=== PATIENT | male | born 1935 | race Caucasian/White ===

== ENCOUNTER 2017-07-13 21:00 | Observation (INO) | payer MEDICARE ==
[2017-07-13 22:03] LABS: BASO # 0.1 10^3/uL (0.0-0.2); BASO % 0.5 % (0.0-1.0); EOS # 0.1 10^3/uL (0.0-0.50); EOS % 1.3 % (0.0-3.0); HEMATOCRIT 43.3 % (42.0-52.0); IMMATURE GRANULOCYTE % 0.4 % (0-3.0); LYMPH # 2.2 10^3/uL (1.5-4.5); LYMPH % 21.7 % (24.0-44.0); MEAN CORPUSCULAR HEMOGLOBIN 27.7 pg (27.0-33.0); MEAN CORPUSCULAR HGB CONC 32.3 g/dl (32.0-36.5); MEAN CORPUSCULAR VOLUME 85.6 fl (80.0-96.0); MONO # 1.1 10^3/uL (0.0-0.8); MONO % 10.4 % (0.0-5.0); NEUTROPHILS # 6.7 10^3/uL (1.8-7.7); NEUTROPHILS % 65.7 % (36.0-66.0); PLATELET COUNT, AUTOMATED 158 10^3/uL (150-450); RED BLOOD COUNT 5.06 10^6/uL (4.30-6.10); RED CELL DISTRIBUTION WIDTH 15.7 % (11.5-14.5); WHITE BLOOD COUNT 10.2 10^3/uL (4.0-10.0)
[2017-07-13 22:19] LABS: ALBUMIN 4.4 GM/DL (3.2-5.2); ALBUMIN/GLOBULIN RATIO 1.38 (1.00-1.93); ALKALINE PHOSPHATASE 103 U/L (45-117); ALT/SGPT 22 U/L (12-78); ANION GAP 9 MEQ/L (8-16); AST/SGOT 28 U/L (7-37); BILIRUBIN,DIRECT 0.1 MG/DL (0.0-0.2); BILIRUBIN,TOTAL 0.5 MG/DL (0.2-1.0); BLOOD UREA NITROGEN 25 MG/DL (7-18); CALCIUM LEVEL 8.9 MG/DL (8.8-10.2); CARBON DIOXIDE LEVEL 23 MEQ/L (21-32); CHLORIDE LEVEL 111 MEQ/L (98-107); CPK CREATINE PHOSPHOKINASE 84 U/L (39-308); CREATININE FOR GFR 1.64 MG/DL (0.70-1.30); GLOMERULAR FILTRATION RATE 43.4 (>42); GLUCOSE, FASTING 118 MG/DL (70-100); POTASSIUM SERUM 3.9 MEQ/L (3.5-5.1); SODIUM LEVEL 143 MEQ/L (136-145); TOTAL PROTEIN 7.6 GM/DL (6.4-8.2); TROPONIN I 0.02 NG/ML (< 0.10)
[2017-07-13 22:25] LABS: CK-MB VALUE MASS 1.6 NG/ML (<3.6); ETHYL ALCOHOL (ETHANOL) < 0.003 % (0.000-0.010)
[2017-07-13 22:53] LABS: VENOUS BASE EXCESS -3.1 (-2.0-2.0); VENOUS HCO3 21.2 MEQ/L (23.0-27.0); VENOUS O2 SATURATION 92.8 % (60.0-80.0); VENOUS PARTIAL PRESSURE CO2 35.7 mmHg (38.0-50.0); VENOUS PARTIAL PRESSURE O2 65.2 mmHg (30.0-50.0); VENOUS PH 7.391 UNITS (7.330-7.430); VENOUS STANDARD HCO3 21.8 MEQ/L; VENOUS TOTAL CO2 22.3 MEQ/L (24.0-28.0)
[2017-07-13 23:18] LABS: AMMONIA 27 uMOL/L (<32)
[2017-07-13] MEDS: NS 500 ML IV ×3 (23:30)
[2017-07-13 23:36] LABS: KETONE, URINE AUTO RFX NEGATIVE (NEGATIVE); LEUKOCYTE ESTERASE UR AUTO RFX NEGATIVE (NEGATIVE); NITRITE, URINE AUTO RFX NEGATIVE (NEGATIVE); RBC, URINE AUTO RFX 1 /HPF (0-3); SQUAM EPITHELIAL CELL UR AURFX 0 /HPF (0-6); WBC, URINE AUTO RFX 1 /HPF (0-3)
[2017-07-13 23:49] LABS: AMPHETAMINES LEVEL URINE NEGATIVE (NEGATIVE); BARBITURATES URINE NEGATIVE (NEGATIVE); BENZODIAZEPINES URINE NEGATIVE (NEGATIVE); CANNABINOIDS URINE NEGATIVE (NEGATIVE); COCAINE METABOLITE URINE NEGATIVE (NEGATIVE); METHADONE URINE NEGATIVE (NEGATIVE); OPIATES URINE NEGATIVE (NEGATIVE); PHENCYCLIDINE URINE NEGATIVE (NEGATIVE)
[2017-07-14] MEDS ORDERED: ONDANSETRON 4MG/2ML VIAL (J2405) IV ×3 (00:15)
[2017-07-14] MEDS: NS 1,000 ML IV ×3 (00:30)
[2017-07-14 06:22] LABS: HEMATOCRIT 41.6 % (42.0-52.0); HEMOGLOBIN 13.6 g/dl (14.0-18.0); MEAN CORPUSCULAR HEMOGLOBIN 27.8 pg (27.0-33.0); MEAN CORPUSCULAR HGB CONC 32.7 g/dl (32.0-36.5); MEAN CORPUSCULAR VOLUME 84.9 fl (80.0-96.0); PLATELET COUNT, AUTOMATED 163 10^3/uL (150-450); RED CELL DISTRIBUTION WIDTH 15.6 % (11.5-14.5); WHITE BLOOD COUNT 9.9 10^3/uL (4.0-10.0)
[2017-07-14 06:55] LABS: ANION GAP 8 MEQ/L (8-16); BLOOD UREA NITROGEN 23 MG/DL (7-18); CARBON DIOXIDE LEVEL 26 MEQ/L (21-32); CHLORIDE LEVEL 112 MEQ/L (98-107); CPK CREATINE PHOSPHOKINASE 95 U/L (39-308); CREATININE FOR GFR 1.62 MG/DL (0.70-1.30); GLUCOSE, FASTING 101 MG/DL (70-100); SODIUM LEVEL 146 MEQ/L (136-145); TROPONIN I 0.03 NG/ML (< 0.10)
[2017-07-14 06:56] LABS: CK-MB VALUE MASS 1.6 NG/ML (<3.6); MB/CK RELATIVE INDEX 1.68 (< OR =4)
[2017-07-14] MEDS: HEPARIN SOD (PORCINE) 5000 UNITS/ML VIAL SC ×6 (10:24→21:44)
[2017-07-14] MEDS: amLODIPine 10 MG TAB PO ×3 (10:26)
[2017-07-14] MEDS: ASPIRIN ENTERIC 325 MG TAB PO ×3 (10:26)
[2017-07-14 10:42] LABS: VITAMIN B12 LEVEL 260 PG/ML (247-911)
[2017-07-14] MEDS ORDERED: METOPROLOL SUCC (TopROL XL) 50MG **XL** TAB PO ×3 (21:00)
[2017-07-14] MEDS ORDERED: SIMVASTATIN 40 MG TAB PO ×3 (21:00)
[2017-07-14] MEDS ORDERED: METOPROLOL SUCC (TopROL XL) 100MG *XL* TAB PO ×3 (21:00)
[2017-07-14] MEDS: SIMVASTATIN 20 MG TAB PO ×3 (21:42)
[2017-07-14] MEDS: METOPROLOL SUCC *XL* 25MG TAB (TopROL *XL*) PO ×3 (21:43)
[2017-07-15] MEDS: ACETAMINOPHEN TAB 650MG DOSE (2X325MG) PO ×3 (04:13)
[2017-07-15 04:14] LABS: HEMATOCRIT 37.9 % (42.0-52.0); HEMOGLOBIN 12.3 g/dl (14.0-18.0); MEAN CORPUSCULAR HEMOGLOBIN 27.9 pg (27.0-33.0); MEAN CORPUSCULAR HGB CONC 32.5 g/dl (32.0-36.5); MEAN CORPUSCULAR VOLUME 85.9 fl (80.0-96.0); PLATELET COUNT, AUTOMATED 138 10^3/uL (150-450); RED BLOOD COUNT 4.41 10^6/uL (4.30-6.10); RED CELL DISTRIBUTION WIDTH 15.3 % (11.5-14.5); WHITE BLOOD COUNT 8.7 10^3/uL (4.0-10.0)
[2017-07-15 04:27] LABS: ANION GAP 7 MEQ/L (8-16); BLOOD UREA NITROGEN 22 MG/DL (7-18); CALCIUM LEVEL 8.5 MG/DL (8.8-10.2); CARBON DIOXIDE LEVEL 26 MEQ/L (21-32); CHLORIDE LEVEL 113 MEQ/L (98-107); CREATININE FOR GFR 1.48 MG/DL (0.70-1.30); GLOMERULAR FILTRATION RATE 48.8 (>42); GLUCOSE, FASTING 112 MG/DL (70-100); MAGNESIUM LEVEL 2.1 MG/DL (1.8-2.4); POTASSIUM SERUM 3.9 MEQ/L (3.5-5.1); SODIUM LEVEL 146 MEQ/L (136-145)
[2017-07-15] MEDS: HEPARIN SOD (PORCINE) 5000 UNITS/ML VIAL SC ×6 (08:42→20:52)
[2017-07-15] MEDS: amLODIPine 10 MG TAB PO ×3 (08:42)
[2017-07-15] MEDS: ASPIRIN ENTERIC 325 MG TAB PO ×3 (08:42)
[2017-07-15] MEDS ORDERED: SLF 3 ML SYR IV ×3 (09:45)
[2017-07-15] MEDS ORDERED: ISOVUE-370 76% 100ML VIAL (Q9967) As Ordered ×3 (10:05)
[2017-07-15] MEDS: SLF 3 ML SYR IV ×6 (14:00→20:52)
[2017-07-15] MEDS: D5W/0.45% SODIUM CHLORIDE 1,000 ML IV ×3 (15:27)
[2017-07-15] MEDS: CLOPIDOGREL 75 MG TAB PO ×3 (16:09)
[2017-07-15] MEDS: SIMVASTATIN 20 MG TAB PO ×3 (20:51)
[2017-07-15] MEDS: METOPROLOL SUCC *XL* 25MG TAB (TopROL *XL*) PO ×3 (20:52)
[2017-07-16 03:54] LABS: HEMATOCRIT 40.6 % (42.0-52.0); HEMOGLOBIN 13.2 g/dl (14.0-18.0); MEAN CORPUSCULAR HEMOGLOBIN 27.7 pg (27.0-33.0); MEAN CORPUSCULAR HGB CONC 32.5 g/dl (32.0-36.5); MEAN CORPUSCULAR VOLUME 85.3 fl (80.0-96.0); PLATELET COUNT, AUTOMATED 138 10^3/uL (150-450); RED BLOOD COUNT 4.76 10^6/uL (4.30-6.10); RED CELL DISTRIBUTION WIDTH 15.4 % (11.5-14.5); WHITE BLOOD COUNT 8.2 10^3/uL (4.0-10.0)
[2017-07-16 04:10] LABS: ANION GAP 7 MEQ/L (8-16); BLOOD UREA NITROGEN 16 MG/DL (7-18); CALCIUM LEVEL 8.4 MG/DL (8.8-10.2); CARBON DIOXIDE LEVEL 24 MEQ/L (21-32); CHLORIDE LEVEL 112 MEQ/L (98-107); CHOLESTEROL LEVEL 103 MG/DL (<200); CHOLESTEROL RISK RATIO 3.433 (<5); CREATININE FOR GFR 1.34 MG/DL (0.70-1.30); GLOMERULAR FILTRATION RATE 54.7 (>42); GLUCOSE, FASTING 119 MG/DL (70-100); HDL CHOLESTEROL 30 MG/DL (>40); LDL CHOLESTEROL 55.6 MG/DL (<100); MAGNESIUM LEVEL 1.9 MG/DL (1.8-2.4); NON-HDL-C 73 MG/DL; POTASSIUM SERUM 3.7 MEQ/L (3.5-5.1); SODIUM LEVEL 143 MEQ/L (136-145); TRIGLYCERIDES LEVEL 87 MG/DL (<150)
[2017-07-16] MEDS: SLF 3 ML SYR IV ×9 (05:31→21:08)
[2017-07-16] MEDS: amLODIPine 10 MG TAB PO ×3 (09:00)
[2017-07-16] MEDS: CLOPIDOGREL 75 MG TAB PO ×3 (09:00)
[2017-07-16] MEDS: ASPIRIN 81 MG ENTERIC TAB PO ×3 (09:00)
[2017-07-16] MEDS: HEPARIN SOD (PORCINE) 5000 UNITS/ML VIAL SC ×6 (09:01→21:08)
[2017-07-16] MEDS: SIMVASTATIN 20 MG TAB PO ×3 (21:07)
[2017-07-16] MEDS: METOPROLOL SUCC *XL* 25MG TAB (TopROL *XL*) PO ×3 (21:08)
[2017-07-17 04:02] LABS: HEMATOCRIT 38.3 % (42.0-52.0); HEMOGLOBIN 12.5 g/dl (14.0-18.0); MEAN CORPUSCULAR HEMOGLOBIN 27.7 pg (27.0-33.0); MEAN CORPUSCULAR HGB CONC 32.6 g/dl (32.0-36.5); MEAN CORPUSCULAR VOLUME 84.9 fl (80.0-96.0); PLATELET COUNT, AUTOMATED 132 10^3/uL (150-450); RED BLOOD COUNT 4.51 10^6/uL (4.30-6.10); RED CELL DISTRIBUTION WIDTH 15.3 % (11.5-14.5); WHITE BLOOD COUNT 8.3 10^3/uL (4.0-10.0)
[2017-07-17 04:22] LABS: ANION GAP 8 MEQ/L (8-16); BLOOD UREA NITROGEN 18 MG/DL (7-18); CALCIUM LEVEL 8.4 MG/DL (8.8-10.2); CARBON DIOXIDE LEVEL 24 MEQ/L (21-32); CHLORIDE LEVEL 112 MEQ/L (98-107); CREATININE FOR GFR 1.44 MG/DL (0.70-1.30); GLOMERULAR FILTRATION RATE 50.4 (>42); GLUCOSE, FASTING 114 MG/DL (70-100); MAGNESIUM LEVEL 2.2 MG/DL (1.8-2.4); POTASSIUM SERUM 3.6 MEQ/L (3.5-5.1); SODIUM LEVEL 144 MEQ/L (136-145)
[2017-07-17] MEDS: SLF 3 ML SYR IV ×9 (05:15→20:51)
[2017-07-17] MEDS: amLODIPine 10 MG TAB PO ×3 (09:07)
[2017-07-17] MEDS: CLOPIDOGREL 75 MG TAB PO ×3 (09:07)
[2017-07-17] MEDS: ASPIRIN 81 MG ENTERIC TAB PO ×3 (09:07)
[2017-07-17] MEDS: HEPARIN SOD (PORCINE) 5000 UNITS/ML VIAL SC ×6 (09:07→20:50)
[2017-07-17] MEDS: **hydrALAZINE** 10 MG TAB PO ×6 (15:19→20:50)
[2017-07-17] MEDS: SIMVASTATIN 20 MG TAB PO ×3 (20:50)
[2017-07-17] MEDS: METOPROLOL SUCC *XL* 25MG TAB (TopROL *XL*) PO ×3 (20:50)
[2017-07-18 05:39] LABS: HEMATOCRIT 39.2 % (42.0-52.0); HEMOGLOBIN 12.9 g/dl (14.0-18.0); MEAN CORPUSCULAR HEMOGLOBIN 27.7 pg (27.0-33.0); MEAN CORPUSCULAR HGB CONC 32.9 g/dl (32.0-36.5); MEAN CORPUSCULAR VOLUME 84.1 fl (80.0-96.0); PLATELET COUNT, AUTOMATED 135 10^3/uL (150-450); RED BLOOD COUNT 4.66 10^6/uL (4.30-6.10); RED CELL DISTRIBUTION WIDTH 15.3 % (11.5-14.5); WHITE BLOOD COUNT 8.4 10^3/uL (4.0-10.0)
[2017-07-18 05:55] LABS: ANION GAP 8 MEQ/L (8-16); BLOOD UREA NITROGEN 20 MG/DL (7-18); CALCIUM LEVEL 8.9 MG/DL (8.8-10.2); CARBON DIOXIDE LEVEL 24 MEQ/L (21-32); CHLORIDE LEVEL 112 MEQ/L (98-107); CREATININE FOR GFR 1.44 MG/DL (0.70-1.30); GLOMERULAR FILTRATION RATE 50.4 (>42); GLUCOSE, FASTING 114 MG/DL (70-100); MAGNESIUM LEVEL 2.5 MG/DL (1.8-2.4); POTASSIUM SERUM 3.8 MEQ/L (3.5-5.1); SODIUM LEVEL 144 MEQ/L (136-145)
[2017-07-18] MEDS: SLF 3 ML SYR IV ×3 (06:04)
[2017-07-18] MEDS: **hydrALAZINE** 10 MG TAB PO ×3 (06:05)
[2017-07-18] MEDS: CLOPIDOGREL 75 MG TAB PO ×3 (08:28)
[2017-07-18] MEDS: FUROSEMIDE 40 MG TAB PO ×3 (08:28)
[2017-07-18] MEDS: ASPIRIN 81 MG ENTERIC TAB PO ×3 (08:28)
[2017-07-18] MEDS: amLODIPine 10 MG TAB PO ×3 (08:29)
[2017-07-18] MEDS: HEPARIN SOD (PORCINE) 5000 UNITS/ML VIAL SC ×3 (08:29)
[2017-07-22 00:08] LABS: COPPER PLASMA 92 ug/dL (72-166); VITAMIN E LEVEL 7.5 mg/L (5.3-17.5)
== END 2017-07-18 12:35 | disposition home or self-care (01) ==
LOC: M ED INP 07-14 00:13 → M PCU 07-14 05:32 → M ED 21:00 → M ED INP 21:01 → M PCU 07-14 05:32
DX: R27.0 Ataxia, unspecified (principal); R47.89 Other speech disturbances; I95.1 Orthostatic hypotension; Z98.890 Other specified postprocedural states; E78.5 Hyperlipidemia, unspecified; I25.10 Atherosclerotic heart disease of native coronary artery without angina pectoris; I50.20 Unspecified systolic (congestive) heart failure; N18.3 Chronic kidney disease, stage 3 (moderate); I13.10 Hypertensive heart and chronic kidney disease without heart failure, with stage 1 through stage 4 chronic kidney disease, or unspecified chronic kidney disease; Z95.810 Presence of automatic (implantable) cardiac defibrillator; I67.82 Cerebral ischemia; I65.23 Occlusion and stenosis of bilateral carotid arteries; Z91.81 History of falling; I25.2 Old myocardial infarction; Z95.5 Presence of coronary angioplasty implant and graft; Z87.891 Personal history of nicotine dependence; Z79.899 Other long term (current) drug therapy
CPT/HCPCS: Q9967

== ENCOUNTER → 2017-07-13 | Outpatient (CLI) | payer MEDICARE | LOC: M RAD 16:24 | DX: R42 Dizziness and giddiness (principal); I67.82 Cerebral ischemia | CPT/HCPCS: 70450 ==

== ENCOUNTER → 2017-08-23 | Outpatient (CLI) | payer MEDICARE | LOC: M RAD 08:59 | DX: N18.4 Chronic kidney disease, stage 4 (severe) (principal); I15.0 Renovascular hypertension; N28.1 Cyst of kidney, acquired; I70.1 Atherosclerosis of renal artery | CPT/HCPCS: 76775 ==

== ENCOUNTER → 2017-09-06 | Outpatient (CLI) | payer MEDICARE | LOC: M RAD 15:28 | DX: M47.812 Spondylosis without myelopathy or radiculopathy, cervical region (principal); M47.813 Spondylosis without myelopathy or radiculopathy, cervicothoracic region; M51.26 Other intervertebral disc displacement, lumbar region; M48.061 Spinal stenosis, lumbar region without neurogenic claudication; M51.27 Other intervertebral disc displacement, lumbosacral region; Z87.81 Personal history of (healed) traumatic fracture | CPT/HCPCS: 72131 ==

== ENCOUNTER 2017-12-11 20:46 | Inpatient (IN) | payer MEDICARE ==
[2017-12-11 21:22] LABS: BASO % 0.5 % (0.0-1.0); EOS # 0.1 10^3/uL (0.0-0.50); EOS % 1.4 % (0.0-3.0); HEMOGLOBIN 13.3 g/dl (13.5-17.5); IMMATURE GRANULOCYTE % 0.3 % (0-3.0); LYMPH # 1.6 10^3/uL (1.5-4.5); LYMPH % 18.5 % (24.0-44.0); MEAN CORPUSCULAR HGB CONC 33.3 g/dl (32.0-36.5); MEAN CORPUSCULAR VOLUME 87.3 fl (80.0-96.0); MONO # 1.1 10^3/uL (0.0-0.8); MONO % 12.4 % (0.0-5.0); NEUTROPHILS # 5.9 10^3/uL (1.8-7.7); NEUTROPHILS % 66.9 % (36.0-66.0); PLATELET COUNT, AUTOMATED 161 10^3/uL (150-450); RED BLOOD COUNT 4.58 10^6/uL (4.30-6.10); RED CELL DISTRIBUTION WIDTH 15.5 % (11.5-14.5); WHITE BLOOD COUNT 8.9 10^3/uL (4.0-10.0)
[2017-12-11 21:35] LABS: INR 0.94; PROTHROMBIN TIME 12.7 SECONDS (12.1-14.4)
[2017-12-11] MEDS: NS 1,000 ML IV ×2 (21:35→21:40)
[2017-12-11 21:43] LABS: ALBUMIN 4.2 GM/DL (3.2-5.2); ALBUMIN/GLOBULIN RATIO 1.31 (1.00-1.93); ALKALINE PHOSPHATASE 81 U/L (45-117); ALT/SGPT 29 U/L (12-78); ANION GAP 11 MEQ/L (8-16); AST/SGOT 30 U/L (7-37); BILIRUBIN,DIRECT < 0.1 MG/DL (0.0-0.2); BILIRUBIN,TOTAL 0.3 MG/DL (0.2-1.0); BLOOD UREA NITROGEN 37 MG/DL (7-18); CALCIUM LEVEL 8.8 MG/DL (8.8-10.2); CARBON DIOXIDE LEVEL 21 MEQ/L (21-32); CHLORIDE LEVEL 111 MEQ/L (98-107); CK-MB VALUE MASS 1.9 NG/ML (<3.6); CPK CREATINE PHOSPHOKINASE 117 U/L (39-308); CREATININE FOR GFR 2.22 MG/DL (0.70-1.30); GLOMERULAR FILTRATION RATE 30.5 (>35); GLUCOSE, FASTING 141 MG/DL (70-100); MB/CK RELATIVE INDEX 1.62 (< OR =4); POTASSIUM SERUM 3.8 MEQ/L (3.5-5.1); SODIUM LEVEL 143 MEQ/L (136-145); TOTAL PROTEIN 7.4 GM/DL (6.4-8.2); TROPONIN I 0.11 NG/ML (< 0.10)
[2017-12-11] MEDS: AMIODARONE HCL 150 MG in APPROPRIATE DILUENT 1 EA IV ×2 (21:54→23:06)
[2017-12-11] MEDS ORDERED: ACETAMINOPHEN TAB 650MG DOSE (2X325MG) PO (23:15)
[2017-12-11] MEDS ORDERED: ACETAMINOPHEN 325 MG TAB PO (23:15)
[2017-12-11 23:16] LABS: MAGNESIUM LEVEL 2.2 MG/DL (1.8-2.4)
[2017-12-12] MEDS ORDERED: ACETAMINOPHEN TAB 650MG DOSE (2X325MG) PO (00:30)
[2017-12-12] MEDS ORDERED: ONDANSETRON 4 MG TAB (S0181) PO (00:30)
[2017-12-12] MEDS ORDERED: BISACODYL 10 MG SUPP PR (00:30)
[2017-12-12 01:37] LABS: NT-PRO BNP 2014 PG/ML (<450)
[2017-12-12 01:38] LABS: TROPONIN I 0.31 NG/ML (< 0.10)
[2017-12-12] MEDS: AMIODARONE HCL 360 MG in APPROPRIATE DILUENT 1 EA IV ×3 (01:39→18:11)
[2017-12-12] MEDS: POTASSIUM CHLORIDE 10 MEQ SR TABLET PO (01:39)
[2017-12-12] MEDS: HEPARIN SOD (PORCINE) 5000 UNITS/ML VIAL SC ×3 (05:44→22:55)
[2017-12-12 09:00] LABS: TROPONIN I 0.22 NG/ML (< 0.10)
[2017-12-12] MEDS: DOCUSATE SODIUM 100 MG CAP PO ×3 (09:00→20:14)
[2017-12-12] MEDS: SENOKOT S TAB PO ×3 (09:00→20:15)
[2017-12-12] MEDS ORDERED: LOSARTAN 50 MG TAB PO (09:00)
[2017-12-12] MEDS ORDERED: FUROSEMIDE 40 MG TAB PO (09:00)
[2017-12-12 09:13] LABS: ANION GAP 7 MEQ/L (8-16); BLOOD UREA NITROGEN 28 MG/DL (7-18); CALCIUM LEVEL 8.3 MG/DL (8.8-10.2); CARBON DIOXIDE LEVEL 23 MEQ/L (21-32); CHLORIDE LEVEL 116 MEQ/L (98-107); CREATININE FOR GFR 1.77 MG/DL (0.70-1.30); GLOMERULAR FILTRATION RATE 39.6 (>35); GLUCOSE, FASTING 136 MG/DL (70-100); POTASSIUM SERUM 3.8 MEQ/L (3.5-5.1); SODIUM LEVEL 146 MEQ/L (136-145)
[2017-12-12] MEDS: CYANOCOBALAMIN 500 MCG TAB PO (09:31)
[2017-12-12] MEDS: VITAMIN D 1,000 INTERNATIONAL UNITS TABLET PO (09:31)
[2017-12-12] MEDS: ASPIRIN 81 MG ENTERIC TAB PO (09:31)
[2017-12-12] MEDS: **hydrALAZINE HCL** 25 MG TAB PO ×3 (09:32→23:56)
[2017-12-12 10:30] LABS: HEMATOCRIT 37.1 % (42.0-52.0); HEMOGLOBIN 12.3 g/dl (13.5-17.5); MEAN CORPUSCULAR HEMOGLOBIN 28.9 pg (27.0-33.0); MEAN CORPUSCULAR HGB CONC 33.2 g/dl (32.0-36.5); MEAN CORPUSCULAR VOLUME 87.3 fl (80.0-96.0); PLATELET COUNT, AUTOMATED 158 10^3/uL (150-450); RED BLOOD COUNT 4.25 10^6/uL (4.30-6.10); RED CELL DISTRIBUTION WIDTH 15.4 % (11.5-14.5); WHITE BLOOD COUNT 9.9 10^3/uL (4.0-10.0)
[2017-12-12] MEDS: NS 1,000 ML IV ×2 (11:37→22:36)
[2017-12-12] MEDS ORDERED: DOPamine HCL 800 MG in APPROPRIATE DILUENT 1 EA IV (16:30)
[2017-12-12 16:31] LABS: TROPONIN I 0.13 NG/ML (< 0.10)
[2017-12-12] MEDS: SIMVASTATIN 40 MG TAB PO (18:12)
[2017-12-12] MEDS: amLODIPine 10 MG TAB PO (18:18)
[2017-12-12] MEDS: METOPROLOL SUCC (TopROL XL) 100MG *XL* TAB PO (18:18)
[2017-12-13] MEDS: HEPARIN SOD (PORCINE) 5000 UNITS/ML VIAL SC ×3 (05:21→21:00)
[2017-12-13 05:50] LABS: HEMATOCRIT 38.3 % (42.0-52.0); HEMOGLOBIN 12.7 g/dl (13.5-17.5); MEAN CORPUSCULAR HEMOGLOBIN 28.9 pg (27.0-33.0); MEAN CORPUSCULAR HGB CONC 33.2 g/dl (32.0-36.5); PLATELET COUNT, AUTOMATED 144 10^3/uL (150-450); RED CELL DISTRIBUTION WIDTH 15.5 % (11.5-14.5)
[2017-12-13 06:11] LABS: ALBUMIN 3.3 GM/DL (3.2-5.2); ALBUMIN/GLOBULIN RATIO 1.06 (1.00-1.93); ALKALINE PHOSPHATASE 65 U/L (45-117); ALT/SGPT 22 U/L (12-78); ANION GAP 8 MEQ/L (8-16); AST/SGOT 22 U/L (7-37); BILIRUBIN,TOTAL 0.4 MG/DL (0.2-1.0); BLOOD UREA NITROGEN 19 MG/DL (7-18); CALCIUM LEVEL 8.4 MG/DL (8.8-10.2); CARBON DIOXIDE LEVEL 24 MEQ/L (21-32); CHLORIDE LEVEL 116 MEQ/L (98-107); CREATININE FOR GFR 1.61 MG/DL (0.70-1.30); GLOMERULAR FILTRATION RATE 44.2 (>35); GLUCOSE, FASTING 113 MG/DL (70-100); POTASSIUM SERUM 3.9 MEQ/L (3.5-5.1); SODIUM LEVEL 148 MEQ/L (136-145); TOTAL PROTEIN 6.4 GM/DL (6.4-8.2)
[2017-12-13] MEDS: DOCUSATE SODIUM 100 MG CAP PO ×3 (08:11→21:00)
[2017-12-13] MEDS: SENOKOT S TAB PO ×3 (08:11→21:00)
[2017-12-13] MEDS: **hydrALAZINE HCL** 25 MG TAB PO ×2 (08:11→20:58)
[2017-12-13] MEDS: VITAMIN D 1,000 INTERNATIONAL UNITS TABLET PO (08:11)
[2017-12-13] MEDS: ASPIRIN 81 MG ENTERIC TAB PO (08:11)
[2017-12-13] MEDS: CYANOCOBALAMIN 500 MCG TAB PO (08:11)
[2017-12-13] MEDS: AMIODARONE 200 MG TAB (PACERONE) PO ×2 (08:37→20:58)
[2017-12-13] MEDS: LOSARTAN 50 MG TAB PO (09:15)
[2017-12-13] MEDS: amLODIPine 10 MG TAB PO (17:57)
[2017-12-13] MEDS: SIMVASTATIN 40 MG TAB PO (17:58)
[2017-12-13] MEDS: METOPROLOL SUCC (TopROL XL) 100MG *XL* TAB PO (17:58)
[2017-12-14 05:52] LABS: HEMATOCRIT 34.1 % (42.0-52.0); HEMOGLOBIN 11.2 g/dl (13.5-17.5); MEAN CORPUSCULAR HEMOGLOBIN 28.5 pg (27.0-33.0); MEAN CORPUSCULAR HGB CONC 32.8 g/dl (32.0-36.5); MEAN CORPUSCULAR VOLUME 86.8 fl (80.0-96.0); PLATELET COUNT, AUTOMATED 126 10^3/uL (150-450); RED BLOOD COUNT 3.93 10^6/uL (4.30-6.10); RED CELL DISTRIBUTION WIDTH 15.3 % (11.5-14.5); WHITE BLOOD COUNT 8.9 10^3/uL (4.0-10.0)
[2017-12-14] MEDS: HEPARIN SOD (PORCINE) 5000 UNITS/ML VIAL SC (06:01)
[2017-12-14 06:09] LABS: ALBUMIN 3.1 GM/DL (3.2-5.2); ALBUMIN/GLOBULIN RATIO 1.11 (1.00-1.93); ALKALINE PHOSPHATASE 58 U/L (45-117); ALT/SGPT 19 U/L (12-78); ANION GAP 6 MEQ/L (8-16); AST/SGOT 19 U/L (7-37); BILIRUBIN,TOTAL 0.6 MG/DL (0.2-1.0); BLOOD UREA NITROGEN 19 MG/DL (7-18); CALCIUM LEVEL 8.4 MG/DL (8.8-10.2); CARBON DIOXIDE LEVEL 26 MEQ/L (21-32); CHLORIDE LEVEL 114 MEQ/L (98-107); CREATININE FOR GFR 1.65 MG/DL (0.70-1.30); GLOMERULAR FILTRATION RATE 42.9 (>35); GLUCOSE, FASTING 105 MG/DL (70-100); POTASSIUM SERUM 3.8 MEQ/L (3.5-5.1); SODIUM LEVEL 146 MEQ/L (136-145); TOTAL PROTEIN 5.9 GM/DL (6.4-8.2)
[2017-12-14] MEDS: CYANOCOBALAMIN 500 MCG TAB PO (08:49)
[2017-12-14] MEDS: **hydrALAZINE HCL** 25 MG TAB PO (08:49)
[2017-12-14] MEDS: AMIODARONE 200 MG TAB (PACERONE) PO (08:50)
[2017-12-14] MEDS: LOSARTAN 50 MG TAB PO (08:50)
[2017-12-14] MEDS: SENOKOT S TAB PO (08:50)
[2017-12-14] MEDS: ASPIRIN 81 MG ENTERIC TAB PO (08:50)
[2017-12-14] MEDS: VITAMIN D 1,000 INTERNATIONAL UNITS TABLET PO (08:50)
[2017-12-14] MEDS: DOCUSATE SODIUM 100 MG CAP PO (08:51)
== END 2017-12-14 13:05 | disposition home or self-care (01) | DRG 309 ==
LOC: M ED INP 23:49 → M ICU 12-12 01:28 → M PCU 12-12 21:24 → M ED 20:46
DX: I47.2 Ventricular tachycardia (principal); I50.20 Unspecified systolic (congestive) heart failure; N17.9 Acute kidney failure, unspecified; I13.0 Hypertensive heart and chronic kidney disease with heart failure and stage 1 through stage 4 chronic kidney disease, or unspecified chronic kidney disease; N18.3 Chronic kidney disease, stage 3 (moderate); E78.5 Hyperlipidemia, unspecified; I25.5 Ischemic cardiomyopathy; I25.10 Atherosclerotic heart disease of native coronary artery without angina pectoris; Z95.5 Presence of coronary angioplasty implant and graft; Z95.810 Presence of automatic (implantable) cardiac defibrillator; Z79.82 Long term (current) use of aspirin; Z79.899 Other long term (current) drug therapy; I25.2 Old myocardial infarction; Z87.891 Personal history of nicotine dependence; Z86.73 Personal history of transient ischemic attack (TIA), and cerebral infarction without residual deficits; Z79.02 Long term (current) use of antithrombotics/antiplatelets; Z98.41 Cataract extraction status, right eye; Z98.42 Cataract extraction status, left eye

== ENCOUNTER 2019-05-29 18:07 | Emergency (ER) | payer MEDICARE ==
[~2019-05-29 18:07] MED LIST: AMIO200T PO; AMLO10TA5 PO; ASPI-527 PO; ASPI81TAEC PO; BENZ200C70 PO; CLOP75TA2 PO; COLC1TAB13 PO; CYAN100049 PO; FURO10EL PO; FURO20TA2 PO; FURO40TA2 PO; HYDR-3910 PO; HYDR12.55 PO; LOSA100T50 PO; METO1TAB33 PO; SIMV40TA20 PO; TYLE325T5 PO; VITA200016 PO; ZOLP10TA2 PO
[2019-05-29] MEDS ORDERED: AMIODARONE 150MG/3ML INJ (J0282) ONE (18:08)
[2019-05-29] MEDS ORDERED: AMIODARONE HCL 150 MG/100 ML PREMIXED BAG (NEXTERONE) (J0282 PER 30MG) ONE (18:08)
[2019-05-29] MEDS ORDERED: MAGNESIUM SULFATE 1GM/2ML (8MEQ/2ML) VIAL (J3475) ONE (18:08)
[2019-05-29] MEDS ORDERED: LIDOCAINE 2% INJ 100 MG/5 ML SYRINGE ONE (18:08)
[2019-05-29] MEDS ORDERED: MAGNESIUM SULFATE 1 GM/100 ML D5W BAG (10MG/ML) (J3475) As Ordered ONE (18:28)
[2019-05-29] MEDS ORDERED: METOPROLOL 5 MG/5 ML VIAL As Ordered ONE (18:30)
[2019-05-29 18:34] VITALS: BP 112/57
[2019-05-29] MEDS ORDERED: AMIODARONE HCL 150 MG in IV 1 EA IV STA ×6 (18:34→19:01)
[2019-05-29] MEDS ORDERED: METOPROLOL 5 MG/5 ML VIAL IV STA (18:34)
[2019-05-29] MEDS ORDERED: TRAZ-257 PO (18:34)
[2019-05-29] MEDS ORDERED: AMIODARONE HCL 360 MG in IV 1 EA IV SCH (18:45)
[2019-05-29] MEDS ORDERED: MAG SULF 1GM/100ML (MAG RUN) 1 GM in IV 1 EA IV ONE (18:45)
[2019-05-29] MEDS ORDERED: AMIODARONE HCL 150 MG in IV 1 EA IV SCH (18:45)
[2019-05-29] MEDS ORDERED: NS 1,000 ML IV ONE (18:45)
[2019-05-29 18:46] LABS: BASO % 0.4 % (0.0-1.0); EOS # 0.1 10^3/uL (0.0-0.5); EOS % 1.4 % (0.0-3.0); HEMATOCRIT 42.5 % (42.0-52.0); HEMOGLOBIN 13.7 g/dl (13.5-17.5); LYMPH # 3.2 10^3/uL (1.5-5.0); LYMPH % 33.8 % (24.0-44.0); MEAN CORPUSCULAR HGB CONC 32.2 g/dl (32.0-36.5); MEAN CORPUSCULAR VOLUME 83.8 fl (80.0-96.0); MONO # 0.9 10^3/uL (0.0-0.8); MONO % 9.6 % (0.0-5.0); NEUTROPHILS # 5.2 10^3/uL (1.5-8.5); NEUTROPHILS % 54.5 % (36.0-66.0); PLATELET COUNT, AUTOMATED 166 10^3/uL (150-450); RED BLOOD COUNT 5.07 10^6/uL (4.30-6.10); WHITE BLOOD COUNT 9.5 10^3/uL (4.0-10.0)
[2019-05-29] MEDS ORDERED: AMIODARONE HCL 360 MG/200 ML PREMIXED BAG (NEXTERONE) (J0282 PER 30MG) As Ordered ONE (18:47)
[2019-05-29 18:49] VITALS: BP 102/56
[2019-05-29 19:06] LABS: CK-MB VALUE MASS 1.1 NG/ML (<3.6); CREATININE FOR GFR 2.02 MG/DL (0.70-1.30); GLOMERULAR FILTRATION RATE 33.9 (>35); MB/CK RELATIVE INDEX 1.69 (< OR =4); POTASSIUM SERUM 3.4 MEQ/L (3.5-5.1); TROPONIN I 0.03 NG/ML (< 0.10)
[2019-05-29] MEDS ORDERED: LIDOCAINE 2% INJ 100 MG/5 ML SYRINGE IV ONE (19:15)
[2019-05-29] MEDS ORDERED: LIDOCAINE 2GM IN D5W 500ML 2,000 MG in IV 1 EA IV SCH ×2 (19:15)
[2019-05-29] MEDS ORDERED: MAGNESIUM *L&D* 4 GM/100 ML BAG (40MG/ML) (J3475) IV ONE (19:30)
--- NOTE | 2019-05-29 19:57 | REP ---
Portable chest x-ray: Single view. History: Chest pain. Comparison study: December 11, 2017. Findings: Monitoring electrodes are seen. 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 The lungs are exposed at a relatively low level of inspiration. No infiltrate is seen. Cardiomegaly is unchanged. There are clips in the epigastric region. Impression: Relatively low level of inspiration. Moderate cardiomegaly with pacemaker. Otherwise no acute disease. Electronically Signed by Daniel Gtoti MD 05/30/2019 08:04 A
--- NOTE | 2019-05-30 15:09 | ECGEPIP ---
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
== END 2019-05-29 19:34 | disposition short-term general hospital (02) ==
LOC: EDBD 18:07 → M ED 18:07
DX: I49.9 Cardiac arrhythmia, unspecified (principal); I25.10 Atherosclerotic heart disease of native coronary artery without angina pectoris; Z86.73 Personal history of transient ischemic attack (TIA), and cerebral infarction without residual deficits; Z95.0 Presence of cardiac pacemaker; Z79.899 Other long term (current) drug therapy; Z79.82 Long term (current) use of aspirin; Z87.891 Personal history of nicotine dependence
CPT/HCPCS: 71045; 80048; 82550; 82553; 84484; 85025; 93005; 93041; 94760; 96374; 96375; 99291; J0282; J3475

== ENCOUNTER → 2019-06-14 | Outpatient (REF) | payer MEDICARE ==
[~2019-06-14] MED LIST changes: +TRAZ-257 PO
[2019-06-14 16:01] LABS: INR 1.87; PROTHROMBIN TIME 21.2 SECONDS (11.8-14.0)
== END ==
LOC: M SHH 14:51
PROVIDERS: ATTEND Internal Medicine Cardiovascular Disease
DX: I48.4 Atypical atrial flutter (principal)

== ENCOUNTER → 2019-06-28 | Outpatient (REF) | payer MEDICARE ==
[2019-06-28 11:54] LABS: PROTHROMBIN TIME 66.2 SECONDS (11.8-14.0)
[2019-06-28 13:26] LABS: INR 7.72
== END ==
LOC: M SHH 10:41
PROVIDERS: ATTEND Internal Medicine Cardiovascular Disease
DX: I48.4 Atypical atrial flutter (principal)

== ENCOUNTER → 2019-07-09 | Outpatient (REF) | payer MEDICARE ==
[2019-07-09 17:15] LABS: CALCIUM LEVEL 8.4 MG/DL (8.8-10.2); CREATININE FOR GFR 1.72 MG/DL (0.70-1.30); GLOMERULAR FILTRATION RATE 40.8 (>35); POTASSIUM SERUM 3.9 MEQ/L (3.5-5.1)
== END ==
LOC: M SHH 15:48
PROVIDERS: ATTEND Nurse Practitioner Family
DX: I50.9 Heart failure, unspecified (principal)

== ENCOUNTER → 2019-07-09 | Outpatient (REF) | payer MEDICARE | LOC: M SHH 15:59 | PROVIDERS: ATTEND Internal Medicine Cardiovascular Disease | DX: I48.4 Atypical atrial flutter (principal) ==

== ENCOUNTER → 2021-11-02 | Outpatient (REF) | payer MEDICARE ==
[~2021-11-02] MED LIST changes: -AMIO200T PO; +AMIO200T49 PO; -AMLO10TA5 PO; +AMLO1TAB25 PO; +ASPI-569 PO; -ASPI81TAEC PO; +COLC0.6T47 PO; -COLC1TAB13 PO; +LOSA100T45 PO; -LOSA100T50 PO
[2021-11-03 17:14] LABS: POTASSIUM SERUM 4.4 MEQ/L (3.5-5.1)
== END ==
LOC: M LAB REF 13:02
PROVIDERS: ATTEND Nurse Practitioner Family
DX: N18.31 Chronic kidney disease, stage 3a (principal); N25.81 Secondary hyperparathyroidism of renal origin; D63.1 Anemia in chronic kidney disease

== ENCOUNTER → 2022-09-07 | Outpatient (CLI) | payer MEDICARE ==
[~2022-09-07] MED LIST changes: +AMLO25TA PO; +ATOR40TA75 PO; +CALC1CAP31 PO; +CALCTAB38 PO; +CARV3.12 PO; +CVSTAB PO; +DOCU100C16 PO; +FERR325T3 PO; +FOLI1TAB11 PO; +LIDOCAINE 1% MDV 20ML VIAL As Ordered ONE; -LOSA100T45 PO; +LOSA100T46 PO; +SPIR-10 PO; +TUMS500C PO; +VITA-243 PO; +WARF4TAB51 PO; +WARF4TAB52 PO
[2022-09-07 09:35] LABS: INR 1.57; PROTHROMBIN TIME 19.1 SECONDS (12.5-14.5)
[2022-09-07 10:25] VITALS: BP 158/80
== END ==
LOC: M IRPRO 08:47
PROVIDERS: ATTEND Family Medicine
DX: R22.2 Localized swelling, mass and lump, trunk (principal); Z79.01 Long term (current) use of anticoagulants